=== PATIENT | female | born 1955 | race Caucasian/White ===

== ENCOUNTER → 2023-04-16 23:11 | Outpatient (CLI) | payer OTHER, SELFPAY ==
[2023-04-16 17:59] LABS: Basophils % 0.5 % (0.1-2.0); Eosinophils # 0.1 K/mm3 (0.0-0.4); Eosinophils % 1.8 % (0.1-12.0); Hemoglobin 14.7 g/dL (12.2-16.2); Lymphocytes # 1.6 K/mm3 (0.7-4.5); Lymphocytes % 25.4 % (10-50); Mean Corpuscular HGB Conc 34.1 g/dL (31.8-35.4); Mean Corpuscular Hemoglobin 31.9 pg (27.0-31.2); Mean Corpuscular Volume 93.5 fl (81-99); Mean Platelet Volume 11.1 fl (7.4-10.4); Monocytes # 0.5 K/mm3 (0.1-1.0); Monocytes % 7.4 % (1.7-9.3); Neutrophils # 4.2 K/mm3 (1.8-7.8); Platelet Count 226 K/mm3 (142-424); Red Cell Distribution Width 13.2 % (11.5-17.5); White Blood Count 6.4 K/mm3 (4.8-10.8)
[2023-04-16 18:08] LABS: Alanine Aminotransferase 30 U/L (12-78); Albumin Level 3.7 g/dl (3.5-5.0); Albumin/Globulin Ratio 1.1 (1.1-1.8); Alkaline Phosphatase 84 U/L (38-126); Anion Gap 12.6 mEq/L (5-15); Aspartate Amino Transferase 35 U/L (14-36); Bilirubin,Total 0.6 mg/dl (0.2-1.3); Blood Urea Nitrogen 11 mg/dl (7-17); Calcium 8.9 mg/dl (8.4-10.2); Carbon Dioxide 28 mmol/L (22.0-30.0); Chloride 104 mmol/L (98-107); Chol/HDL Ratio 5.4 (1-3.5); Cholesterol 221 mg/dl (140-200); Estimated Glomerular Filt Rate 99 ml/min (>60); GFR (African American) 120 ML/MIN (>60); Globulin 3.5 g/dL (1.3-3.2); Glucose 108 mg/dl (74-100); HDL Cholesterol 41 mg/dl (40-60); Potassium 4.6 mmoL/L (3.5-5.1); Sodium 140 mmol/L (136-145); Total Protein,Serum 7.2 g/dl (6.3-8.2); Triglycerides 168 mg/dl (30-150); VLDL Cholesterol 34 mg/dL (0-40)
[2023-04-16 18:20] LABS: Direct LDL Cholesterol 125.75 mg/dL (100-129)
[2023-04-16 18:24] LABS: Free T4 (Free Thyroxine) 1.58 ng/dl (0.78-2.19)
[2023-04-16 18:28] LABS: T4 (Thyroxine) 12.5 ug/dl (5.53-11.0); Triiodothryronine (T3) Uptake 31 % (23.5-40.5)
[2023-04-16 18:41] LABS: Thyroid Stimulating Hormone 1.05 uIU/mL (0.465-4.68)
== END ==
PROVIDERS: PCP Nurse Practitioner Family; Visit Provider Nurse Practitioner Family
DX: I10 Essential (primary) hypertension (principal)
CPT/HCPCS: 80053; 80061; 84436; 84439; 84443; 84479; 85025

== ENCOUNTER → 2023-04-17 14:24 | Outpatient (CLI) | payer OTHER, SELFPAY ==
[2023-04-17 09:25] LABS: Hemoglobin A1C 6.3 % (4.0-6.0)
== END ==
PROVIDERS: PCP Nurse Practitioner Family; Visit Provider Nurse Practitioner Family
DX: R73.09 Other abnormal glucose (principal)
CPT/HCPCS: 83036

== ENCOUNTER → 2023-04-30 08:44 | Outpatient (CLI) | payer MEDICARE, SELFPAY ==
--- NOTE | 2023-04-30 08:45 | XR_ITS ---
FINAL REPORT TECHNIQUE: Bone densitometry calculations of the lumbar spine and left hip were obtained. CLINICAL HISTORY: Screening FINDINGS: Using L1-4, the bone mineral density of the spine is 0.829 g/cm2, corresponding to T-score of -2.4. Using the left hip, the bone mineral density of the femoral neck is 0.520 g/cm2, corresponding to a T-score of -3.0. Using the right hip, the bone mineral density of the femoral neck is 0.635 g/cm2, corresponding to a T-score of -1.9. NOTE: T-score: Standard deviation compared with peak bone mass of young adult mean. *Following the recommendations of the International Society of Bone Densitometry, classification of hip BMD is based on the lower of two T-scores; total hip or femoral neck. IMPRESSION: Osteoporosis: Lowest T-score is at or below -2.5. This patient's T-score meets the World Health Organization criteria for osteoporosis. FRAX was not reported because some of the T-scores are at or below-2.5. Reviewed, Interpreted and Dictated by Miguel Ramos III, MD Transcribed by Moni Morataya Authenticated and [facility]
== END ==
PROVIDERS: PCP Nurse Practitioner Family; Visit Provider Nurse Practitioner Family
DX: Z13.820 Encounter for screening for osteoporosis (principal); Z78.0 Asymptomatic menopausal state
CPT/HCPCS: 77080

== ENCOUNTER → 2023-05-28 17:19 | Outpatient (CLI) | payer MEDICARE, SELFPAY ==
[2023-05-28 19:51] LABS: Vitamin B12 446 pg/mL (239-931)
== END ==
PROVIDERS: PCP Nurse Practitioner Family; Visit Provider Nurse Practitioner Family
DX: R20.0 Anesthesia of skin (principal); R20.2 Paresthesia of skin
CPT/HCPCS: 82607

== ENCOUNTER 2023-07-23 10:07 | Outpatient (CLI) | payer MEDICARE, SELFPAY ==
--- NOTE | 2023-07-23 10:12 | XR_ITS ---
FINAL REPORT TECHNIQUE: Chest PA & Lateral CLINICAL HISTORY: shortness of breath & cough x 2 weeks checking for pneumonia FINDINGS: 2 views of the chest were performed. The heart size is upper limits of normal. The mediastinum is within normal limits. There are mild chronic changes in the lung bases. There are no pleural effusions. There is no pneumothorax. The bony thorax appears intact. IMPRESSION: No acute cardiopulmonary process. Reviewed, Interpreted and Dictated by Pelon Hendrickson MD Transcribed by Yifan Cornejo Authenticated and [facility]
== END 2023-07-23 23:59 ==
LOC: RAD 10:08
PROVIDERS: PCP Nurse Practitioner Family; Visit Provider Nurse Practitioner Family
DX: R06.02 Shortness of breath (principal)
CPT/HCPCS: 71046

== ENCOUNTER 2023-08-14 20:11 | Outpatient (CLI) | payer MEDICARE, SELFPAY ==
[2023-08-14 16:50] LABS: Basophils % 0.4 % (0.1-2.0); Eosinophils # 0.1 K/mm3 (0.0-0.4); Hematocrit 44.4 % (37.0-47.0); Hemoglobin 15.2 g/dL (12.2-16.2); Lymphocytes # 1.4 K/mm3 (0.7-4.5); Lymphocytes % 19.7 % (10-50); Mean Corpuscular HGB Conc 34.2 g/dL (31.8-35.4); Mean Corpuscular Hemoglobin 30.8 pg (27.0-31.2); Mean Corpuscular Volume 90.2 fl (81-99); Mean Platelet Volume 10.3 fl (7.4-10.4); Monocytes # 0.4 K/mm3 (0.1-1.0); Monocytes % 5.8 % (1.7-9.3); Neutrophils # 5.1 K/mm3 (1.8-7.8); Neutrophils % 73.2 % (37.0-80.0); Platelet Count 245 K/mm3 (142-424); Red Blood Count 4.92 M/mm3 (4.20-5.40); Red Cell Distribution Width 13.1 % (11.5-17.5)
[2023-08-14 16:59] LABS: Alanine Aminotransferase 26 U/L (12-78); Albumin Level 3.8 g/dl (3.5-5.0); Albumin/Globulin Ratio 1.1 (1.1-1.8); Alkaline Phosphatase 94 U/L (38-126); Anion Gap 8.8 mEq/L (5-15); Aspartate Amino Transferase 30 U/L (14-36); Bilirubin,Total 0.4 mg/dl (0.2-1.3); Blood Urea Nitrogen 11 mg/dl (7-17); Calcium 9.2 mg/dl (8.4-10.2); Carbon Dioxide 31 mmol/L (22.0-30.0); Chloride 104 mmol/L (98-107); Chol/HDL Ratio 5.1 (1-3.5); Cholesterol 256 mg/dl (140-200); Estimated Glomerular Filt Rate 83 ml/min (>60); GFR (African American) 100 ML/MIN (>60); Globulin 3.4 g/dL (1.3-3.2); Glucose 103 mg/dl (74-100); HDL Cholesterol 50 mg/dl (40-60); Potassium 4.8 mmoL/L (3.5-5.1); Sodium 139 mmol/L (136-145); Total Protein,Serum 7.2 g/dl (6.3-8.2); Triglycerides 101 mg/dl (30-150); VLDL Cholesterol 20 mg/dL (0-40)
[2023-08-14 17:10] LABS: Direct LDL Cholesterol 171.46 mg/dL (100-129)
[2023-08-14 18:07] LABS: Hemoglobin A1C 6.5 % (4.0-6.0)
== END 2023-08-14 23:59 ==
LOC: LAB.DROPOF 20:11
PROVIDERS: PCP Nurse Practitioner Family; Visit Provider Nurse Practitioner Family
DX: E78.5 Hyperlipidemia, unspecified (principal); R73.09 Other abnormal glucose; Z79.899 Other long term (current) drug therapy
CPT/HCPCS: 80053; 80061; 83036; 84443; 85025

== ENCOUNTER 2023-08-21 18:38 | Outpatient (CLI) | payer MEDICARE, SELFPAY | END 2023-08-21 23:59 | LOC: LAB.DROPOF 18:43 | PROVIDERS: PCP Nurse Practitioner Family; Visit Provider Nurse Practitioner Family | DX: R30.0 Dysuria (principal); R10.30 Lower abdominal pain, unspecified; R35.0 Frequency of micturition; R39.15 Urgency of urination | CPT/HCPCS: 87086 ==

== ENCOUNTER 2023-11-14 10:31 | Outpatient (CLI) | payer MEDICARE, SELFPAY ==
[2023-11-14 16:39] LABS: Basophils # 0.1 K/mm3 (0-0.2); Eosinophils # 0.1 K/mm3 (0.0-0.4); Hematocrit 44.7 % (37.0-47.0); Hemoglobin 14.4 g/dL (12.2-16.2); Lymphocytes # 1.4 K/mm3 (0.7-4.5); Lymphocytes % 26.5 % (10-50); Mean Corpuscular HGB Conc 32.3 g/dL (31.8-35.4); Mean Corpuscular Hemoglobin 30.6 pg (27.0-31.2); Mean Corpuscular Volume 94.7 fl (81-99); Mean Platelet Volume 10.6 fl (7.4-10.4); Monocytes # 0.4 K/mm3 (0.1-1.0); Monocytes % 7.1 % (1.7-9.3); Neutrophils # 3.4 K/mm3 (1.8-7.8); Neutrophils % 63.5 % (37.0-80.0); Platelet Count 218 K/mm3 (142-424); Red Blood Count 4.72 M/mm3 (4.20-5.40); Red Cell Distribution Width 13.5 % (11.5-17.5); White Blood Count 5.3 K/mm3 (4.8-10.8)
[2023-11-14 16:43] LABS: Alanine Aminotransferase 23 U/L (12-78); Albumin Level 3.9 g/dl (3.5-5.0); Albumin/Globulin Ratio 1.1 (1.1-1.8); Alkaline Phosphatase 92 U/L (38-126); Anion Gap 12.2 mEq/L (5-15); Aspartate Amino Transferase 32 U/L (14-36); Bilirubin,Total 0.5 mg/dl (0.2-1.3); Blood Urea Nitrogen 10 mg/dl (7-17); Calcium 9.4 mg/dl (8.4-10.2); Carbon Dioxide 28 mmol/L (22.0-30.0); Chloride 103 mmol/L (98-107); Chol/HDL Ratio 4.3 (1-3.5); Cholesterol 230 mg/dl (140-200); Estimated Glomerular Filt Rate 99 ml/min (>60); GFR (African American) 120 ML/MIN (>60); Globulin 3.5 g/dL (1.3-3.2); Glucose 97 mg/dl (74-100); HDL Cholesterol 54 mg/dl (40-60); Potassium 4.2 mmoL/L (3.5-5.1); Sodium 139 mmol/L (136-145); Total Protein,Serum 7.4 g/dl (6.3-8.2); Triglycerides 105 mg/dl (30-150); VLDL Cholesterol 21 mg/dL (0-40)
[2023-11-14 17:03] LABS: Direct LDL Cholesterol 142.97 mg/dL (100-129)
[2023-11-14 18:36] LABS: Hemoglobin A1C 5.9 % (4.0-6.0)
[2023-11-14 18:54] LABS: 25-OH Vitamin D, Total 14.6 ng/mL (30-100)
== END 2023-11-14 23:59 | disposition home or self-care (01) ==
LOC: LAB.DROPOF 11-15 10:32
PROVIDERS: PCP Nurse Practitioner Family; Visit Provider Nurse Practitioner Family
DX: E78.5 Hyperlipidemia, unspecified (principal); R73.09 Other abnormal glucose; E55.9 Vitamin D deficiency, unspecified; Z68.36 Body mass index [BMI] 36.0-36.9, adult
CPT/HCPCS: 80053; 80061; 82306; 83036; 85025

== ENCOUNTER 2024-05-07 15:04 | Outpatient (CLI) | payer MEDICARE, SELFPAY ==
--- NOTE | 2024-05-07 15:08 | XR_ITS ---
PROCEDURE INFORMATION: Exam: XR Left Hip Exam date and time: 05/07/2024 3:27 PM Age: 68 years old Clinical indication: Hip pain; Left hip; Additional info: Pain/edema of legs TECHNIQUE: Imaging protocol: Radiologic exam of the left hip. Views: 2 or 3 views hip with pelvis when performed. COMPARISON: No relevant prior studies available. FINDINGS: Bones/joints: Mild degenerative changes of the left hip. No acute fracture identified. Soft tissues: Unremarkable. IMPRESSION: No acute abnormality.
--- NOTE | 2024-05-07 15:08 | XR_ITS ---
PROCEDURE INFORMATION: Exam: XR Right Hip Exam date and time: 05/07/2024 3:27 PM Age: 68 years old Clinical indication: Hip pain; Right hip; Additional info: Pain/edema of legs TECHNIQUE: Imaging protocol: Radiologic exam of the right hip. Views: 2 or 3 views hip with pelvis when performed. COMPARISON: No relevant prior studies available. FINDINGS: Bones/joints: Mild degenerative spurring of both hips. No acute fracture identified. Soft tissues: Unremarkable. IMPRESSION: DJD.
--- NOTE | 2024-05-07 15:08 | XR_ITS ---
PROCEDURE INFORMATION: Exam: XR Right Knee Exam date and time: 05/07/2024 3:27 PM Age: 68 years old Clinical indication: Pain; Knee; Right; Additional info: Pain/edema of legs TECHNIQUE: Imaging protocol: Radiologic exam of the right knee. Views: 1 or 2 views. COMPARISON: No relevant prior studies available. FINDINGS: Bones/joints: Mild tricompartmental degenerative changes. No acute fracture identified. Small suprapatellar joint effusion. Soft tissues: Normal. IMPRESSION: DJD and joint effusion.
--- NOTE | 2024-05-07 15:08 | XR_ITS ---
PROCEDURE INFORMATION: Exam: XR Left Knee Exam date and time: 05/07/2024 3:27 PM Age: 68 years old Clinical indication: Pain; Knee; Left; Additional info: Pain/edema of legs TECHNIQUE: Imaging protocol: Radiologic exam of the left knee. Views: 1 or 2 views. COMPARISON: No relevant prior studies available. FINDINGS: Bones/joints: Mild tricompartmental degenerative changes. No acute fracture identified. Soft tissues: Normal. IMPRESSION: Degenerative change. No acute finding.
== END 2024-05-07 23:59 | disposition home or self-care (01) ==
LOC: RAD 15:05
PROVIDERS: PCP Family Medicine; Visit Provider Family Medicine
DX: R60.0 Localized edema (principal); M79.604 Pain in right leg; M79.605 Pain in left leg
CPT/HCPCS: 73502; 73560

== ENCOUNTER 2025-01-04 14:00 | Outpatient (CLI) | payer MEDICARE, SELFPAY ==
--- OUTSIDE RECORDS SUMMARY | 2024-12-09 09:16 | XMS_ITS | Encounter Summary ---
Author Organization Healthcare Address [address] [place] [address] Care Team Providers Care Web Marketing Assistant Name Role Phone Luan Duran MD Primary Care Provider Shirley vailable Encounter Details Date Type Department Care Team (Latest Contact Info) Description 12/09/2024 9:16 AM EDT - 12/09/2024 11:59 PM EDT Hospital Encounter [facility] [address], [address] [place] [address] Left shoulder pain, unspecified chronicity Discharge Disposition: Home or Self Care Social History Tobacco Use Types Packs/Day Years Used Date Smoking Tobacco: Never Smokeless Tobacco: Never Comments Unknown Sex and Gender Information Value Date Recorded Sex Assigned at Not on file Legal Sex Female 8:28 PM EDT Gender Identity Not on file Sexual Orientation Not on file documented as of this encounter Medications at Time of Discharge Beclomethasone Diprop HFA (QVAR REDIHALER IN) Inhale. bisoprolol (Zebeta) 5 MG tablet TAKE 1 TABLET DAILY (DISCONTINUE CARVEDILOL) 03/03/2024 diclofenac (Voltaren) 1 % topical gel Place on the skin 2 (two) times a day. Apply as directed to bilateral knees. 100 g 05/15/2024 ezetimibe (Zetia) 10 MG tablet Take 1 tablet (10 mg) by mouth 1 (one) time each day. fexofenadine (Beth) 180 MG tablet Take 1 tablet (180 mg) by mouth 1 (one) time each day. Vitamin D3 125 MCG (5000 UT) capsule Take 1 capsule (5,000 Units) by mouth 1 (one) time each day. 03/14/2024 documented as of this encounter Plan of Treatment Not on file documented as of this encounter Procedures Procedure Name Priority Date/Time Associated Diagnosis Comments XR SHOULDER LEFT 2+ VIEWS Routine 12/09/2024 9:26 AM EDT Left shoulder pain, unspecified chronicity documented in this encounter Results * XR Shoulder Left 2+ Views (12/09/2024 9:26 AM EDT) Anatomical Region Laterality Modality Upper Extremities, Shoulder Left [facility] Impressions 12/09/2024 10:15 AM EDT Degenerative changes as described. No acute bony findings. CRITICAL RESULT: No. COMMUNICATION: Per this written report. Drafted by Jesus Martinez MD on 12/09/2024 10:14 AM Final report signed by Jesus Martinez MD on 12/09/2024 10:15 AM Narrative 12/09/2024 10:15 AM EDT CLINICAL INDICATION: pain TECHNIQUE: XR SHOULDER LEFT 2+ VIEWS COMPARISON: None. FINDINGS: Aortic atherosclerotic vascular calcifications. The imaged chest is unremarkable. Moderate AC joint. Mild glenohumeral joint osteoarthrosis. Procedure Note Jesus Martinez MD - 12/09/2024 CLINICAL INDICATION: pain TECHNIQUE: XR SHOULDER LEFT 2+ VIEWS COMPARISON: None. FINDINGS: Aortic atherosclerotic vascular calcifications. The imaged chest isunremarkable. Moderate AC joint. Mild glenohumeral joint osteoarthrosis. IMPRESSION: Degenerative changes as described. No acute bony findings. CRITICAL RESULT: No. COMMUNICATION: Per this written report. Drafted by Jesus Martinez MD on 12/09/2024 10:14 AM Final report signed by Jesus Martinez MD on 12/09/2024 10:15 AM Lucas Chapman MD IMG XR PROCEDURES Final Result documented in this encounter Visit Diagnoses Diagnosis Left shoulder pain, unspecified chronicity documented in this encounter Additional Health Concerns Assessment Noted Time A fall risk assessment has been complete d for the patient 12/09/2024 9:13 AM EDT A Body Mass Index follow-up plan has been documented for the patient 12/09/2024 12:43 PM EDT documented as of this encounter Care Teams Web Marketing Assistant Relationship Specialty Start Date End Date Luan Duran MD PCP - General Family Medicine 05/08/24 documented as of this encounter
--- OUTSIDE RECORDS SUMMARY | 2024-12-09 09:30 | XMS_ITS | Encounter Summary ---
Author Organization Healthcare Address [address] [id number] Care Team Providers Care Washroom Cleaner Name Role Phone Luan Duran MD Primary Care Provider Shirley vailable Reason for Referral * Other Medical (Routine) - Pending Review Specialty Diagnoses / Procedures Referred By Skylar henson Referred To Contact Diagnoses Adhesive capsulitis of left shoulder Procedures Injection - Large Joint: L subacromial bursa Lucas Chapman MD [address] [address] Phone: tel: fax: Referral ID Status Reason Start Date Expiration Date V isits Requested Visits Authorized [id number] Pending Review 12/09/2024 06/10/2026 1 1 * Consultation (Routine) - Authorized Specialty Diagnoses / Procedures Referred By Skylar henson Referred To Contact Physical Therapy Diagnoses Left shoulder pain, unspecified chronicity Lucas Chapman MD [address] [address] Phone: tel: fax: Referral ID Status Reason Start Date Expiration Date Visits Requested Visits Authorized [id number] Authorized Consult and Treat 12/09/2024 06/10/2026 1 1 Reason for Visit * Reason Comments Pain Encounter Details Date Type Department Care Team (Late st Contact Info) Description 12/09/2024 9:30 AM EDT Office Visit [facility] [address], [address] [place] [address] Lucas Chapman MD [address] [place] [address] Adhesive capsulitis of left shoulder (Primary Dx); Left shoulder pain, unspecified chronicity Social History Tobacco Use Types Packs/Day Years Used Date Smoking Tobacco: Never Smokeless Tobacco: Never Comments Unknown Sex and Gender Information Value Date Recorded Sex Assigned at Not on file Legal Sex Female 8:28 PM EDT Gender Identity Not on file Sexual Orientation Not on file documented as of this encounter Last Filed Vital Signs Vital Sign Reading Time Taken Comments Blood Pressure 166/77 12/09/2024 9:10 AM EDT Pulse - - Temperature - - Respiratory Rate - - Oxygen Saturation - - Inhaled Oxygen Concentration - - Weight 95.7 kg (211 lb) 12/09/2024 9:10 AM EDT Height 160 cm (5' 3 ) 12/09/2024 9:10 AM EDT Body Mass Index 37.38 12/09/2024 9:10 AM EDT documented in this encounter Miscellaneous Notes * Progress Notes - Lucas Chapman MD - 12/09/2024 9:30 AM EDTAssociated Order(s): Injection - Large Joint: L subacromial bursa Post-Procedure Diagnose(s): Adhesive capsulitis of left shoulder Clinic Note Encounter Date: 12/09/2024 Subjective: Chief Complaint: Left shoulder pain History of Present Illness: 69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 It has been progressive over the last several weeks. She associates her pain to lifting her mother who is 101 years of age, helping her transfer, etc.. She localizes her pain to the anterior aspect of the shoulder as well as the axilla. 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 She also hassome pain posteriorly in demonstrates she has to alter the way she Grooms her hair and can not get to her bra at this time. She does endorse intermittent tingling sensation in the hand and distal forearm at times but this is not constant. Has taken some [id number] medicine without significantrelief. 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 Medications Patient's Medications New Prescriptions No medications on file Previous Medications BECLOMETHASONE DIPROP HFA (QVAR REDIHALER IN) Inhale. BISOPROLOL (ZEBETA) 5 MG TABLET TAKE 1 TABLET DAILY (DISCONTINUE CARVEDILOL) DICLOFENAC (VOLTAREN) 1 % TOPICAL GEL Place on the skin 2 (two) times a day. Apply as directed to bilateral knees. EZETIMIBE (ZETIA) 10 MG TABLET Take 1 tablet (10 mg) by mouth 1 (one) time each day. FEXOFENADINE (TIERRA) 180 MG TABLET Take 1 tablet (180 mg) by mouth 1 (one) time each day. VITAMIN D3 125 MCG (5000 UT) CAPSULE Take 1 capsule (5,000 Units) by mouth 1 (one) time each day. Modified Medications No medications on file Discontinued Medications No medications on file Surgical History Surgical History[1] Allergies Allergies[2] Objective: Visit Vitals BP (!) 166/77 Ht 1.6 m (5' 3 ) Wt 95.7 kg (211 lb) BMI 37.38 kg/m?? Smoking Status Never BSA 2.06 m?? GEN: Alert, cooperative, in no acute distress MSK: Musculoskeletal exam of the left shoulder reveals no gross asymmetry in the bony landmarks. She is limited in flexion abduction internal rotation into a graded her degree external rotation. She does fire and all of these planes in his 4+ out of 5 in strength due to pain. Passive range of motion is significantly decreased on the affected side versus the unaffected side. Pain with Montez painwith Neer's. Posterior load is pain-free and I can not put her in an apprehension position. She is neurovascularly intact distally in left upper extremity. Imaging: I personally reviewed three views of the left shoulder which show mild glenohumeral joint degenerative changes as well as mild to moderate acromioclavicular joint degenerative changes. Assessment and Plan: Diagnosis Plan 1. Adhesive capsulitis of left shoulder 2. Left shoulder pain, unspecified chronicity XR Shoulder Left 2+ Views Physical Therapy (outgoing) Orders Placed This Encounter XR Shoulder Left 2+ Views Physical Therapy (outgoing) Follow up in about 4 weeks (around 01/06/2025). Left shoulder adhesive capsulitis complicated by mild glenohumeral joint arthritis. Given her limited range of motion I think she would benefit from a subacromial corticosteroid injection I discussedthe potential risks/benefits of this and after the discussion she wanted to move forward with the procedure. See procedure note below for details. Also recommended she follow through with physical therapy we will provide her physical therapy prescription today and she will get started early next week. Follow up in 4 weeks where we will evaluate her response to the subacromial injection today. I also advised she contact her PCP for a mammogram. 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 Records Reviewed: Prior clinic notes This is a chronic new problem that limits bodily function. After discussing risks and benefits, including but not limited to bleeding, infection and worseningpain, the patient wished to proceed with the procedure today. See procedure note. Post-injection care instructions were provided. Patient ID: Briseyda Allen is a 69 y.o. female. Encounter Diagnoses Name Primary? Left shoulder pain, unspecified chronicity Adhesive capsulitis of left shoulder Yes Injection - Large Joint: L subacromial bursa Indications: pain Details: 22 G needle, posterior approach Medications: 20 mg bupivacaine 0.5 %; 40 mg lidocaine 1 %; 80 mg Kenalog-40 40 MG/ML Outcome: tolerated well, no immediate complications Procedure, treatment alternatives, risks and benefits explained, specific risks discussed (Specificrisks included flare reaction, increased pain, increased stiffness, injury to surrounding tissues, increased risk of infection, and risk of elevated glucose level.). Consent was given by the patient.Immediately prior to procedure a time out was called to verify the correct patient, procedure, equipment, mining support worker and site/side marked as required. Patient was prepped and draped in the usual sterile fashion. Electronically Signed by: Lucas Chapman MD - 12/09/2024 - 12:34 PM [1] No past surgical history on file. [2] Allergies Allergen Reactions Nickel Itching and Rash Ceclor [Cefaclor] Unknown - Patient states they do not know rxn details Ciprofloxacin Unknown - Patient states they do not know rxn details Penicillin G Other - please document in the comment field Allergy doctor said no, but fainted once when younger Sudafed [Pseudoephedrine] Unknown - Patient states they do not know rxn details Sulfa Drugs Unknown - Patient states they do not know rxn details documented in this encounter Plan of Treatment Scheduled Referrals Name Type Priority Associated Diagnoses Orde r Schedule Physical Therapy (outgoing) Outpatient Referral Routine Left shoulder pain, unspecified chronicity 1 Occurrences starting 12/09/2024 until 06/12/2026 documented as of this encounter Procedures Procedure Name Priority Date/Time Associated Diagnosis Comments UT ARTHROCENTESIS ASPIR&/INJ MAJOR JT/BURSA W/O US Routine 12/09/2024 9:30 AM EDT Adhesive capsulitis of left shoulder documented in this encounter Results * UT ARTHROCENTESIS ASPIR&/INJ MAJOR JT/BURSA W/O US (12/09/2024 9:30 AM EDT) Narrative Lucas Chapman MD - 12/09/2024 9:30 AM EDT Lucas Chapman MD 12/09/2024 12:43 PM Injection - Large Joint: L subacromial bursa Indications: pain Details: 22 G needle, posterior approach Medications: 20 mg bupivacaine 0.5 %; 40 mg lidocaine 1 %; 80 mg Kenalog-40 40 MG/ML Outcome: tolerated well, no immediate complications Procedure, treatment alternatives, risks and benefits explained, specific risks discussed (Specific risks included flare reaction, increased pain, increased stiffness, injury to surrounding tissues, increased risk of infection, and risk of elevated glucose level.). Consent was given by the patient. Immediately prior to procedure a time out was called to verify the correct patient, procedure, equipment, mining support worker and site/side marked as required. Patient was prepped and draped in the usual sterile fashion. us Lucas Chapman MD IN CLINIC/BEDSIDE ORDERABLES F inal Result * XR Shoulder Left 2+ Views (12/09/2024 [...] documented in this encounter Visit Diagnoses Diagnosis Adhesive capsulitis of left shoulder- Primary Left shoulder pain, unspecified chronicity Left shoulder pain, unspecified chronicity documented in this encounter Administered Medications Inactive Administered Medications - up to 3 most recent administrations Medication Order MAR Action Action Date Dose Rate Site bupivacaine (Marcaine) 0.5 % injection 20 mg 20 mg, Injection, Once PRN Procedure, 1 dose, Starting on Sat12/09/24 at 0930, Until Sat12/09/24 at 0930, RoutineIndications:Adhesive capsulitis of left shoulder Given 12/09/2024 9:30 AM EDT 20 mg lidocaine (Xylocaine) 1 % injection 40 mg 40 mg, Intra-articular, Once PRN Procedure, 1 dose, Starting on Sat12/09/24 at 0930, Until Sat12/09/24 at 0930, RoutineIndications:Adhesive capsulitis of left shoulder Given 12/09/2024 9:30 AM EDT 40 mg triamcinolone acetonide (Kenalog-40) injection 80 mg 80 mg, Intra-articular, Once PRN Procedure, 1 dose, Starting on Sat12/09/24 at 0930, Until Sat12/09/24 at 0930, RoutineIndications:Adhesive capsulitis of left shoulder Given 12/09/2024 9:30 AM EDT 80 mg documented in this encounter Additional Health Concerns Assessment Noted Time A fall risk assessment has been complete d for the patient 12/09/2024 9:13 AM EDT A Body Mass Index follow-up plan has been documented for the patient 12/09/2024 12:43 PM EDT documented as of this encounter Care Teams Washroom Cleaner Relationship Specialty Start Date End Date Luan Duran MD PCP - General Family Medicine 05/08/24 documented as of this encounter
--- OUTSIDE RECORDS SUMMARY | 2025-01-05 09:55 | XMS_ITS | Encounter Summary ---
Author Organization Healthcare Address [address] [place] [address] Care Team Providers Care Avionics Electrical Engineer Name Role Phone Luan Duran MD Primary Care Provider Shirley vailable Encounter Details Date Type Department Care Team (Latest Contact Info) Description 12/09/2024 Travel Social History Tobacco Use Types Packs/Day Years Used Date Smoking Tobacco: Never Smokeless Tobacco: Never Comments Unknown Sex and Gender Information Value Date Recorded Sex Assigned at Not on file Legal Sex Female 8:28 PM EDT Gender Identity Not on file Sexual Orientation Not on file documented as of this encounter Plan of Treatment Not on file documented as of this encounter Visit Diagnoses Not on filedocumented in this encounter Additional Health Concerns Assessment Noted Time A fall risk assessment has been complete d for the patient 12/09/2024 9:13 AM EDT A Body Mass Index follow-up plan has been documented for the patient 12/09/2024 12:43 PM EDT documented as of this encounter Care Teams Avionics Electrical Engineer Relationship Specialty Start Date End Date Luan Duran MD PCP - General Family Medicine 05/08/24 documented as of this encounter
--- OUTSIDE RECORDS SUMMARY | 2025-01-05 09:55 | XMS_ITS | Clinical Summary ---
Author Organization Healthcare Address [address] [place] [address] Care Team Providers Care Sterilization Technician Name Role Phone Luan Duran MD Primary Care Provider Shirley vailable Allergies Active Allergy Reactions Criticality Noted Date Comments Cefaclor Unknown - Patient st ates they do not know rxn details Low 12/16/2020 Ciprofloxacin Unknown - Patient st ates they do not know rxn details Low 12/16/2020 Nickel Itching,Rash Medium 05/15/2024 Penicillin G Other - please docum ent in the comment field Low 02/07/2023 Allergy doctor said no, but fainted once when younger Pseudoephedrine Unknown - Patient st ates they do not know rxn details Low 12/16/2020 Sulfa Drugs Unknown - Patient st ates they do not know rxn details Low 12/16/2020 Medications bisoprolol (Zebeta) 5 MG tablet TAKE 1 TABLET DAILY (DISCONTINUE CARVEDILOL) 4 Active fexofenadine (Beth) 180 MG tablet Take 1 tablet (180 mg) by mouth 1 (one) time each day. Active ezetimibe (Zetia) 10 MG tablet Take 1 tablet (10 mg) by mouth 1 (one) time each day. Active Vitamin D3 125 MCG (5000 UT) capsule Take 1 capsule (5,000 Units) by mouth 1 (one) time each day. 4 Active diclofenac (Voltaren) 1 % topical gel Place on the skin 2 (two) times a day. Apply as directed to bilateral knees. 100 g 4 Active Additional Information Patient not taking.Reported on 12/09/2024 Beclomethasone Diprop HFA (QVAR REDIHALER IN) Inhale. Active Hospital, Clinic, or Other Facility Administered Medication Ordered Dose Route Frequency Start Date End Date Status bupivacaine (Marcaine) 0.5 % injection 20 mgIndications:Adhesi ve capsulitis of left shoulder 20 mg IJ Once PRN Procedure 12/09/2024 12/09/2024 Ended triamcinolone acetonide (Kenalog-40) injection 80 mgIndications:Adhesi ve capsulitis of left shoulder 80 mg IX Once PRN Procedure 12/09/2024 12/09/2024 Ended lidocaine (Xylocaine) 1 % injection 40 mgIndications:Adhesi ve capsulitis of left shoulder 40 mg IX Once PRN Procedure 12/09/2024 12/09/2024 Ended Active Problems Problem Noted Date Diagnosed Date Left optic disc pit 12/16/2020 Overview (12/16/2020): Added automatically from request for surgery [id number] Encounters Date Type Department Care Team Description 12/09/2024 9:30 AM EDT Office Visit [facility] [address] [place] [address] Lucas Chapman MD Adhesive capsulitis of left shoulder (Primary Dx); Left shoulder pain, unspecified chronicity 12/09/2024 9:16 AM EDT - 12/09/2024 11:59 PM EDT Hospital Encounter [facility] X-Ray [address] [place] [address] Left shoulder pain, unspecified chronicity Discharge Disposition: Home or Self Care 12/09/2024 Travel from Last 3 Months Social History Tobacco Use Types Packs/Day Years Used Date Smoking Tobacco: Never Smokeless Tobacco: Never Comments Unknown Sex and Gender Information Value Date Recorded Sex Assigned at Not on file Legal Sex Female 8:28 PM EDT Gender Identity Not on file Sexual Orientation Not on file Last Filed Vital Signs Vital Sign Reading Time Taken Comments Blood Pressure 166/77 12/09/2024 9:10 AM EDT Pulse - - Temperature - - Respiratory Rate - - Oxygen Saturation - - Inhaled Oxygen Concentration - - Weight 95.7 kg (211 lb) 12/09/2024 9:10 AM EDT Height 160 cm (5' 3 ) 12/09/2024 9:10 AM EDT Body Mass Index 37.38 12/09/2024 9:10 AM EDT Plan of Treatment Health Maintenance Due Date Last Done Comments [facility]-Bone Density Scan 1953 [facility]-Depression Screening 1953 [facility]-Hepatitis C Screening 1955 [facility]-Medicare Annual Wellness (AWV) 1955 [facility]-Infant/Child/Adol SDOH Screenings 1955 [facility]- SDOH Screenings 10/02/1971 [facility]-Adult SDOH Screenings 10/02/1971 [facility]-DTaP,Tdap,and Td Vaccine s (1 - Tdap) 1972 CT Colonography 1998 Colonoscopy 1998 FIT-DNA 1998 FIT 1998 FOBT 1998 Sigmoidoscopy 1998 [facility]-Colorectal Cancer Screening 1998 [facility]-Breast Cancer Screening 10/02/2003 [facility]-Zoster Vaccines (1 of 2) 10/02/2003 [facility]-Pneumococcal Vaccine: 50 + Years (2 of 2 - PPSV23) 12/30/2019 12/29/2018 [id number] Vaccine ( - season) 2024 07/25/2021, 09/23/2020, 09/05/2020 [facility]-Influenza Vaccine (#1) 2025 [facility]-RSV Vaccine: 60+ Years o r (1 - 1-dose 75+ series) 2028 [facility]-Obesity Intervention Completed 025, 05/15/2024 HPV Vaccines Aged Out No longer eligi ble based on patient's age to complete this topic [facility]-HIB Vaccines Aged Out No longer e ligible based on patient's age to complete this topic [facility]-Hepatitis A Vaccines Aged Out No longer eligible based on patient's age to complete this topic [facility]-IPV Vaccines Aged Out No longer e ligible based on patient's age to complete this topic [facility]-Rotavirus Vaccines Aged Out No lo nger eligible based on patient's age to complete this topic Procedures Procedure Name Priority Date/Time Associated Diagnosis Comments [place] ARTHROCENTESIS ASPIR&/INJ MAJOR JT/BURSA W/O US Routine 12/09/2024 9:30 AM EDT Adhesive capsulitis of left shoulder XR SHOULDER LEFT 2+ VIEWS Routine 12/09/2024 9:26 AM EDT Left shoulder pain, unspecified chronicity from Last 3 Months Results * [place] ARTHROCENTESIS ASPIR&/INJ MAJOR JT/BURSA W/O US (12/09/2024 [...] to verify the correct patient, procedure, equipment, learning support teacher and site/side marked as required. Patient was prepped and draped in the usual sterile fashion. Lucas Chapman MD IN CLINIC/BEDSIDE ORDERABLES F [...] Jesus Martinez MD on 12/09/2024 10:15 AM [facility] (formerly [facility]) Lani Chapman MD IMG XR PROCEDURES Final Result from Last 3 Months Insurance [facility] [place] [phone] Care Teams Sterilization Technician Relationship Specialty Start Date End Date Luan Duran MD PCP - General Family Medicine 05/08/24
== END 2025-01-04 23:59 | disposition home or self-care (01) ==
LOC: LAB.DROPOF 01-05 09:54
PROVIDERS: PCP Nurse Practitioner Family; Visit Provider Nurse Practitioner Family
DX: R39.9 Unspecified symptoms and signs involving the genitourinary system (principal); N39.0 Urinary tract infection, site not specified
CPT/HCPCS: 87086; 87088